=== PATIENT | female | born 1995 | race Caucasian/White ===

== ENCOUNTER 2023-02-26 15:15 | Emergency (ER) | payer BC ==
[2023-02-26] MEDS ORDERED: diphenhydrAMINE 50 MG/ML VIAL ONE (15:56)
[2023-02-26] MEDS ORDERED: Metoclopramide HCl 10 MG/2 ML VIAL ONE (15:57)
[2023-02-26] MEDS ORDERED: Ketorolac Tromethamine 30 MG/ML VIAL ONE (15:57)
== END 2023-02-26 17:47 | disposition home or self-care (01) ==
LOC: CSHERS 15:15
DX: G43.909 Migraine, unspecified, not intractable, without status migrainosus (principal)
CPT/HCPCS: 36416; 96365; 96375; J1200; J1885; J2765